=== PATIENT | male | born 1980 | race Hispanic/Latino ===

== ENCOUNTER 2017-02-17 19:39 | Emergency (ER) | payer OTHER ==
[2017-02-17 20:29] VITALS: BP 133/92; PULSE 68; RESP 18; TEMP 98.7; O2SAT 98
--- NOTE | 2017-02-17 22:37 | ED PDOC ---
HPI: Male Pain Time Seen by Provider: 02/17/17 22:35 Chief Complaint (Nursing): Male Genitourinary Chief Complaint (Provider): scotal laceraation History Per: Patient History/Exam Limitations: no limitations Additional Complaint(s): 36yo M in Ed for eval of laceration sustained to scrotal area 48 hrs ago from shaving area-states that he has been able to stop the bleeding however from time to time the bleeding continues. no pain, fever, swelling,dysuria or hemturuia. Past Medical History Reviewed: Historical Data, Nursing Documentation, Vital Signs Vital Signs: Last Vital Signs Temp 98.7 F 02/17/17 20:25 Pulse 68 02/17/17 20:25 Resp 18 02/17/17 20:25 BP 133/92 H 02/17/17 20:25 Pulse Ox 98 02/17/17 20:25 - Medical History PMH: No Chronic Diseases - Family History Family History: States: No Known Family Hx - Allergies Allergies/Adverse Reactions: Allergies Allergy/AdvReac Type Severity Reaction Status Date / Time No Known Allergies Allergy Verified 02/17/17 20:29 Review of Systems ROS Statement: Except As Marked, All Systems Reviewed And Found Negative Constitutional: Negative for: Fever Genitourinary Male: Positive for: Scrotal Pain Physical Exam - Reviewed Nursing Documentation Reviewed: Yes Vital Signs Reviewed: Yes - Physical Exam Appears: Positive for: Well, Non-toxic, No Acute Distress Head Exam: Positive for: ATRAUMATIC, NORMAL INSPECTION, NORMOCEPHALIC Skin: Positive for: Normal Color, Warm, DRY Cardiovascular/Chest: Positive for: Regular Rate, Rhythm Respiratory: Positive for: CNT, Normal Breath Sounds Male Genital Exam: Positive for: other (at frenulum-healing laceration noted no swelling nontender. ) Neurologic/Psych: Positive for: Alert, Oriented - ECG O2 Sat by Pulse Oximetry: 98 - Progress ED Course And Treament: impression: laceration old and healing. no indication at this time for further ER intervention. laceration is superficial .5cm in length and no active bleeding. no concern for testicular injury Medical Decision Making Medical Decision Making: steri strips placed to help bring the skin together, however advised that laceration in the area could lead to some intermittent bleeding due to friction or erection pt understands. advised to f.u with urology for any concerns. Disposition - Clinical Impression Clinical Impression: Laceration - Patient ED Disposition Is Patient to be Admitted: No Counseled Patient/Family Regarding: Diagnosis, Need For Followup - Disposition Referrals: [facility] [Provider Group] [facility] [Outside] Disposition: Routine/Home Disposition Time: 22:40 Condition: GOOD Instructions: Laceration (ED), Steristrips (ED)
== END 2017-02-17 23:48 | disposition home or self-care (01) ==
LOC: H.ER 19:39
DX: S31.31XA Laceration without foreign body of scrotum and testes, initial encounter (principal); W26.8XXA Contact with other sharp object(s), not elsewhere classified, initial encounter; Y92.002 Bathroom of unspecified non-institutional (private) residence as the place of occurrence of the external cause